=== PATIENT | female | born 1955 | race Caucasian/White ===

== ENCOUNTER 2016-12-07 07:16 | Inpatient (IN) | payer MEDICARE, OTHER ==
[~2016-12-07] VITALS: Ht 165.1 cm; Wt 62.0 kg
[~2016-12-07 07:16] MED LIST: AMLO1CAP12 PO; ASPI-515 PO; BACL-19 PO; CALC1CAP8 PO; DULO60CA7 PO; FENTANYL PATCH TD; GABA600T2 PO; HYDR-3144 PO; LORA1TAB PO; NIAC500T9 PO; OMEG1CAP12 PO; POTASSIUM PO; RISP0.5T3 PO; RISP1TAB3 PO; ROSU20TA PO; TIOT18CA INH; TRAZ150T68 PO; UBID100C19 PO; [UNRECOGNIZED DRUG - OTHER]; [UNRECOGNIZED DRUG - OTHER] PO; [UNRECOGNIZED DRUG - OTHER] PO; [UNRECOGNIZED DRUG - OTHER] PO; [UNRECOGNIZED DRUG - OTHER] PO
[2016-12-07 08:00] VITALS: BP 146/80
[2016-12-07] MEDS ORDERED: LACTATED RINGERS 1,000 ML IV SCH (08:07)
[2016-12-07] MEDS ORDERED: LIDOCAINE 1%, 2ML SQ PRN (08:30)
[2016-12-07] MEDS ORDERED: HYDROmorphone 2 MG/ML, 1ML ONE (09:49)
[2016-12-07] MEDS ORDERED: MIDAZOLAM 1 MG/ML, 2ML ONE (09:50)
[2016-12-07] MEDS ORDERED: FENTANYL PF 250 MCG/5ML ONE (09:50)
[2016-12-07] MEDS ORDERED: PHENYLEPHRINE 10 MG/ML ONE (09:56)
[2016-12-07] MEDS ORDERED: PROPOFOL 10 MG/ML, 20ML ONE (09:56)
[2016-12-07] MEDS ORDERED: CEFAZOLIN 1,000 MG ONE (09:56)
[2016-12-07] MEDS ORDERED: ONDANSETRON 2MG/ML, 2ML ONE (09:56)
[2016-12-07] MEDS ORDERED: SUCCINYLCHOLINE 20 MG/ML, 10ML ONE (09:56)
[2016-12-07] MEDS ORDERED: DEXAMETHASONE 4 MG/ML, 1ML ONE (09:56)
[2016-12-07] MEDS ORDERED: ROCURONIUM 10 MG/ML ONE (09:56)
[2016-12-07] MEDS ORDERED: EPHEDRINE 50 MG/ML, 1ML ONE (09:56)
[2016-12-07] MEDS ORDERED: NEOSPORIN OINT, 15GM ONE (11:06)
[2016-12-07] MEDS ORDERED: ONDANSETRON 2MG/ML, 2ML IVPush PRN (11:30)
[2016-12-07] MEDS ORDERED: METOCLOPRAMIDE 5 MG/ML, 2ML IV PRN (11:30)
[2016-12-07] MEDS ORDERED: PROMETHAZINE 25 MG/ML, 1ML IM PRN (11:30)
[2016-12-07] MEDS ORDERED: MEPERIDINE/PF 25MG/0.5ML IVPush PRN (11:30)
[2016-12-07] MEDS ORDERED: PROMETHAZINE 25 MG/ML, 1ML IV PRN (11:30)
[2016-12-07] MEDS ORDERED: FENTANYL PF 100 MCG/2ML IV PRN (11:30)
[2016-12-07] MEDS ORDERED: OXYcodone 5 MG/5 ML ORAL.SOL UDC PO PRN (11:30)
[2016-12-07] MEDS ORDERED: BISACODYL 10 MG SUPP PR PRN (11:30)
[2016-12-07] MEDS ORDERED: ACETAMINOPHEN 325 MG TABLET PO PRN ×2 (11:30)
[2016-12-07] MEDS ORDERED: LABETALOL 5MG/ML, 20ML IV PRN (11:30)
[2016-12-07] MEDS ORDERED: SENNA/DOCUSATE TABLET PO PRN (11:30)
[2016-12-07] MEDS ORDERED: HYDROmorphone 1 MG/ML, 1ML IV PRN (11:30)
[2016-12-07] MEDS ORDERED: MIDAZOLAM 1 MG/ML, 2ML IV PRN (11:30)
[2016-12-07] MEDS ORDERED: hydrALAzine 20 MG/ML, 1ML IV PRN (11:30)
[2016-12-07] MEDS: HYDROcodone/APAP 5/325 TABLET PO PRN ×3 (13:11→23:29)
[2016-12-07 13:33] VITALS: BP 110/58
[2016-12-07] MEDS: morphine SULFATE 10 MG/ML, 1ML IVPush PRN ×2 (15:39→20:13)
[2016-12-07] MEDS: POTASSIUM CHLORIDE 20 MEQ in D5%-0.45% NACL 1,000 ML IV SCH (15:39)
[2016-12-07] MEDS: CEFAZOLIN PMX 1GM/50ML 50 ML IVPB SCH (17:51)
[2016-12-07] MEDS: DOCUSATE 100 MG CAPSULE PO SCH (20:13)
[2016-12-07 21:01] VITALS: BP 103/56
[2016-12-08 00:46] VITALS: BP 108/41
[2016-12-08] MEDS: POTASSIUM CHLORIDE 20 MEQ in D5%-0.45% NACL 1,000 ML IV SCH (02:01)
[2016-12-08] MEDS: morphine SULFATE 10 MG/ML, 1ML IVPush PRN ×2 (02:04→09:01)
[2016-12-08] MEDS: CEFAZOLIN PMX 1GM/50ML 50 ML IVPB SCH (02:04)
[2016-12-08 03:38] VITALS: BP 107/59
[2016-12-08] MEDS: HYDROcodone/APAP 5/325 TABLET PO PRN (05:20)
[2016-12-08] MEDS ORDERED: ENOXAPARIN 40 MG/0.4 ML SQ SCH (06:00)
[2016-12-08 07:28] VITALS: BP 103/55
[2016-12-08] MEDS: DOCUSATE 100 MG CAPSULE PO SCH (08:43)
[2016-12-08] MEDS ORDERED: MULTIVITAMINS/MINERALS TABLET PO SCH (09:00)
== END 2016-12-08 11:12 | disposition home health service (06) | DRG 494 ==
LOC: ORIP 07:16 → EDSTATUS 10:00 → 4NOR 12:53 → DCLOUNGE 12-08 10:35
PROVIDERS: ADMIT Orthopaedic Surgery; ATTEND Orthopaedic Surgery
PROC: 0QR Lower Bones, Replacement (ICD-10-PCS; principal; 2016-12-07 10:00)
PROC: 0SPC08Z Removal of Spacer from Right Knee Joint, Open Approach (ICD-10-PCS; 2016-12-07 10:00)
DX: M84.561A Pathological fracture in neoplastic disease, right tibia, initial encounter for fracture (principal)
CPT/HCPCS: 76001; 87070; 87075; 87176; 87205; J0690; J1100; J1170; J1650; J2250; J2405; J2704; J3010; J3480; C1762; C1769; J0330; J2270; J2370; J7120

== ENCOUNTER 2018-01-13 22:53 | Inpatient (IN) | payer MEDICARE ==
[~2018-01-13] VITALS: Ht 165.1 cm; Wt 66.1 kg
[~2018-01-13 22:53] MED LIST changes: -HYDR-3144 PO; +HYDR-3245 PO; -OMEG1CAP12 PO; +OMEG1CAP23 PO; +TRAZ150T62 PO; -TRAZ150T68 PO
[2018-01-13 23:29] LABS: BASOPHILS # (AUTO) 0.03 x10^3/uL (0-0.1); BASOPHILS % (AUTO) 1 % (0-1); EOSINOPHILS # (AUTO) 0.27 x10^3/uL (0-0.4); EOSINOPHILS % (AUTO) 4 % (1-7); LYMPHOCYTES # (AUTO) 1.92 x10^3/uL (1-3.4); LYMPHOCYTES % (AUTO) 31 % (22-44); MD NO; MEAN CORPUSCULAR HEMOGLOBIN 29.6 pg (27.0-34.8); MEAN CORPUSCULAR HGB CONC 33.4 g/dL (32.4-35.8); MEAN CORPUSCULAR VOLUME 88.7 fL (80-100); MEAN PLATELET VOLUME 8.1 fL (7.4-10.4); MONOCYTES # (AUTO) 0.47 x10^3/uL (0.2-0.8); MONOCYTES % (AUTO) 8 % (2-9); NEUTROPHILS # (AUTO) 3.51 x10^3/uL (1.8-6.8); NEUTROPHILS % (AUTO) 57 % (42-75); PLATELET COUNT 219 x10^3/uL (130-400); RED BLOOD COUNT 4.89 x10^6/uL (3.82-5.3); RED CELL DISTRIBUTION WIDTH 13.4 % (9.6-15.2)
[2018-01-13] MEDS ORDERED: SODIUM CHLORIDE FLUSH 10ML SYR IVF ONE (23:30)
[2018-01-13 23:37] LABS: INTERNATIONAL NORMALIZED RATIO 1.07 (0.93-1.1); PROTHROMBIN TIME 11.1 Seconds (9.6-11.5)
[2018-01-13 23:41] LABS: ALANINE AMINOTRANSFERASE 34 U/L (12-78); ANION GAP 6 mmol/L (5-15); CALCIUM 8.9 mg/dL (8.5-10.1); CHLORIDE 105 mmol/L (98-107)
[2018-01-13 23:45] LABS: ALKALINE PHOSPHATASE 89 U/L (45-117); BILIRUBIN,TOTAL 0.5 mg/dL (0.2-1.0); TOTAL PROTEIN 7.3 g/dL (6.4-8.2); TROPONIN I < 0.015 ng/mL (0.000-0.045)
[2018-01-14] MEDS ORDERED: SODIUM CHLORIDE 0.9% 1,000 ML IV SCH (01:58)
[2018-01-14] MEDS ORDERED: NICOTINE 7 MG/24 HR PATCH.TD24 TD SCH (02:00)
[2018-01-14] MEDS ORDERED: ACETAMINOPHEN 325 MG TABLET PO PRN (02:00)
[2018-01-14] MEDS ORDERED: POLYETHYLENE GLYCOL 17 GM PACKET PO PRN (02:00)
[2018-01-14] MEDS ORDERED: hydrALAzine 20 MG/ML, 1ML IVPush PRN (02:00)
[2018-01-14] MEDS ORDERED: PROMETHAZINE 25 MG/ML, 1ML IM PRN (02:00)
[2018-01-14] MEDS ORDERED: BISACODYL 10 MG SUPP PR PRN (02:00)
[2018-01-14] MEDS ORDERED: morphine SULFATE 10 MG/ML, 1ML IVPush PRN (02:00)
[2018-01-14] MEDS ORDERED: ONDANSETRON ODT 4 MG PO PRN (02:00)
[2018-01-14] MEDS ORDERED: ONDANSETRON 2MG/ML, 2ML IVPush PRN (02:00)
[2018-01-14] MEDS ORDERED: FENTANYL REMOVE PATCH NOTE XX SCH (02:30)
[2018-01-14] MEDS ORDERED: FENTANYL 25 MCG PATCH TD SCH (02:30)
[2018-01-14 02:43] LABS: FREE T4 (FREE THYROXINE) 0.79 ng/dL (0.76-1.46); THYROID STIMULATING HORMONE 0.934 mIU/L (0.358-3.740)
[2018-01-14 02:50] VITALS: BP 102/61
[2018-01-14 02:53] LABS: HEMOGLOBIN A1C 5.3 % (4.2-6.3)
[2018-01-14] MEDS: HEPARIN 5,000 UNITS/ML, 1ML SQ SCH ×2 (03:46→10:00)
[2018-01-14] MEDS: GABAPENTIN 300 MG CAPSULE PO SCH ×2 (05:35→10:22)
[2018-01-14] MEDS: HYDROcodone/APAP 10/325 MG TABLET PO SCH ×2 (05:35→10:21)
[2018-01-14 06:10] LABS: TROPONIN I < 0.015 ng/mL (0.000-0.045)
[2018-01-14 07:45] VITALS: BP 121/68
[2018-01-14] MEDS ORDERED: REGADENOSON 0.4 MG/5 ML SYRINGE ONE (08:24)
[2018-01-14] MEDS ORDERED: [UNRECOGNIZED DRUG - OTHER] PO SCH (09:00)
[2018-01-14] MEDS ORDERED: UBIDECARENONE 100 MG PO SCH (09:00)
[2018-01-14] MEDS ORDERED: SENNA/DOCUSATE TABLET PO SCH (09:00)
[2018-01-14] MEDS ORDERED: DULOXETINE 30 MG CAPSULE.DR PO SCH (09:00)
[2018-01-14] MEDS ORDERED: POTASSIUM CHLORIDE 8 MEQ TABLET.ER PO SCH (09:00)
[2018-01-14] MEDS ORDERED: BENAZEPRIL 20 MG TABLET PO SCH (09:00)
[2018-01-14] MEDS ORDERED: [UNRECOGNIZED DRUG - OTHER] PO SCH (09:00)
[2018-01-14] MEDS ORDERED: IPRATROPIUM 0.5 MG/2.5 ML INHA HHN SCH (09:00)
[2018-01-14] MEDS ORDERED: ALBUTEROL/IPRATROPIUM 2.5MG/0.5MG, 3 ML NPPB SCH ×2 (09:00)
[2018-01-14] MEDS ORDERED: CALCIUM/VITAMIN D3 250-125 TABLET PO SCH (09:00)
[2018-01-14] MEDS ORDERED: LORazepam 1MG TABLET PO SCH (09:00)
[2018-01-14] MEDS ORDERED: BACLOFEN 10 MG TABLET PO SCH (09:00)
[2018-01-14] MEDS ORDERED: AMLODIPINE 5 MG TABLET PO SCH (09:00)
[2018-01-14] MEDS ORDERED: MULTIVITAMIN 1 TABLET PO SCH (09:00)
[2018-01-14] MEDS ORDERED: RISPERIDONE 0.5 MG TABLET PO SCH (12:00)
[2018-01-14 12:12] LABS: TROPONIN I < 0.015 ng/mL (0.000-0.045)
[2018-01-14] MEDS ORDERED: RISPERIDONE 1 MG TABLET ONE (13:04)
[2018-01-14] MEDS ORDERED: RISPERIDONE 1 MG TABLET PO SCH (21:00)
[2018-01-14] MEDS ORDERED: TRAZODONE 150MG TABLET PO SCH (21:00)
[2018-01-14] MEDS ORDERED: ASPIRIN 81 MG TABLET EC PO SCH (21:00)
[2018-01-14] MEDS ORDERED: ATORVASTATIN 40 MG TABLET PO SCH (21:00)
== END 2018-01-14 14:26 | disposition home or self-care (01) | DRG 313 ==
LOC: ED 23:48 → EDIP 01-14 00:02 → 5SO 01-14 02:48
PROVIDERS: ADMIT Family Medicine; ATTEND Family Medicine
DX: R07.9 Chest pain, unspecified (principal); Z99.81 Dependence on supplemental oxygen; I11.9 Hypertensive heart disease without heart failure; E78.5 Hyperlipidemia, unspecified; G89.29 Other chronic pain; R47.81 Slurred speech; I35.1 Nonrheumatic aortic (valve) insufficiency; I45.10 Unspecified right bundle-branch block; J44.9 Chronic obstructive pulmonary disease, unspecified; Z87.820 Personal history of traumatic brain injury; Z87.891 Personal history of nicotine dependence; Z90.81 Acquired absence of spleen; Z91.018 Allergy to other foods; Z79.899 Other long term (current) drug therapy
CPT/HCPCS: 36415; 70450; 71045; 78452; 80053; 83036; 83735; 84439; 84443; 84484; 85025; 85610; 85730; 93005; 93017; 93306; 94640; 99285; J1644; J2785; J7620; A9502; C9898; J7030